=== PATIENT | female | born 2000 | race Caucasian/White ===

== ENCOUNTER → 2022-12-12 | Outpatient (CLI) | payer OTHER, SELFPAY ==
[2022-12-16 07:07] LABS: Chlamydia By Nucleic Acid AMP Negative (Negative); Gonococcus By Nucleic Acid AMP Negative (Negative)
[2022-12-17 17:24] LABS: HPV Reflexed? NOT INDICATED
== END | disposition home or self-care (01) ==
LOC: LABSPEC 12:31
PROVIDERS: Referring Provider Nurse Practitioner Women's Health; Visit Provider Nurse Practitioner Women's Health
DX: Z12.4 Encounter for screening for malignant neoplasm of cervix (principal); Z11.3 Encounter for screening for infections with a predominantly sexual mode of transmission
CPT/HCPCS: 87491; 87591; 88175; G0145

== ENCOUNTER → 2024-07-07 | Outpatient (CLI) | payer OTHER, SELFPAY ==
[2024-07-07 17:29] LABS: Estradiol 54.3 pg/mL; Follicle Stimulating Hormone 4.3 mIU/mL
== END | disposition home or self-care (01) ==
PROVIDERS: Nurse Practitioner Women's Health; PCP Physician Assistant; Referring Provider Nurse Practitioner Family; Visit Provider Nurse Practitioner Family
DX: N91.4 Secondary oligomenorrhea (principal); Z13.29 Encounter for screening for other suspected endocrine disorder
CPT/HCPCS: 36415; 82627; 82670; 83001; 84402; 84439; 84443; 86376; 82626

== ENCOUNTER → 2024-07-24 | Outpatient (CLI) | payer OTHER, SELFPAY ==
[2024-07-24 12:41] LABS: ALB/GLOB Ratio 1.2 RATIO (0.9-2.4); AST(SGOT) 18 U/L (<=31); Alanine Aminotransfer ALT/SGPT 19 U/L (<=34); Albumin, Serum 3.9 g/dL (3.5-5.0); Alkaline Phosphatase 59 U/L (35-104); Anion Gap 11 (5-15); BUN 12 mg/dL (4-19); BUN/Creat Ratio 21.1 RATIO (10-20); Calcium,Total 9.2 mg/dL (7.6-11.0); Carbon Dioxide 24.2 mmol/L (21.0-32.0); Chloride 107 mmol/L (98-108); Creatinine, Serum 0.56 mg/dL (0.70-1.20); EST Glomerular Filtration Rate 130 (>60); Globulin 3.2 g/dL (2.2-4.2); Glucose 99 mg/dL (70-99); Potassium 4.1 mmol/L (3.3-5.1); Protein, Total 7.2 g/dL (5.9-8.4); Sodium Level 142 mmol/L (133-145); Total Bilirubin 0.36 mg/dL (0.00-1.30)
== END | disposition home or self-care (01) ==
PROVIDERS: PCP Physician Assistant; Referring Provider Nurse Practitioner Family; Visit Provider Nurse Practitioner Family
DX: Z31.69 Encounter for other general counseling and advice on procreation (principal); N91.5 Oligomenorrhea, unspecified
CPT/HCPCS: 36415; 80053